=== PATIENT | female | born 1940 ===

== ENCOUNTER 2021-07-16 12:03 | Emergency (ER) | payer OTHER ==
[~2021-07-16] VITALS: Ht 152.4 cm; Wt 72.6 kg
== END 2021-07-16 14:59 | disposition home or self-care (01) ==
LOC: ER 12:03
DX: L98.499 Non-pressure chronic ulcer of skin of other sites with unspecified severity (principal); Z88.0 Allergy status to penicillin; Z88.6 Allergy status to analgesic agent